=== PATIENT | male | born 1985 | race Caucasian/White ===

== ENCOUNTER 2018-05-26 17:46 | Emergency (ER) | payer SELFPAY ==
[2018-05-26] MEDS ORDERED: ALBUTEROL 2.5 MG/3 ML NEB SOL ONE (18:37)
[2018-05-26 18:48] LABS: Urine Blood NEGATIVE (NEG); Urine Glucose NEGATIVE (NEG); Urine Protein NEGATIVE (NEG)
[2018-05-26 18:51] LABS: Absolute Lymphocytes (CBC) 1.3 K/uL (0.7-4.9); Absolute Monocytes 1.3 K/uL (0.1-1.3); Absolute Neutrophil 12.1 K/uL (1.8-8.0); Basophils % 0.3 % (0-1.3); Eosinophils % 0.6 % (0-4.4); Hematocrit 37.6 % (39.6-49.0); Lymphocytes % 9.1 % (15.3-44.8); MCH 30.2 pg (27.0-35.0); MCV 87.3 fL (80-100); MPV 8.1 fL (7.6-11.3); Monocytes % 8.6 % (3.3-12.3); RBC Red Blood Cell Count 4.31 M/uL (4.33-5.43)
[2018-05-26 18:58] LABS: Barbiturates NEGATIVE (NEGATIVE); Benzodiazepines NEGATIVE (NEGATIVE); Cocaine NEGATIVE (NEGATIVE); METHAMPHETAM NEGATIVE (NEGATIVE); Methadone NEGATIVE (NEGATIVE); Opiates NEGATIVE (NEGATIVE); Phencyclidine NEGATIVE (NEGATIVE); THC Cannibis POSITIVE (NEGATIVE)
[2018-05-26 19:08] LABS: ALT/SGPT 28 U/L (12-78); AST/SGOT 22 U/L (15-37); Albumin 3.9 g/dL (3.4-5.0); Alkaline Phosphatase 88 U/L (45-117); BUN Blood Urea Nitrogen 4 mg/dL (7-18); Bicarbonate 24 mmol/L (21-32); Bilirubin Direct 0.2 mg/dL (0-0.2); Bilirubin Total 0.7 mg/dL (0.2-1.0); Glucose Level 134 mg/dL (74-106); Magnesium 2.2 mg/dL (1.8-2.4); Potassium 3.2 mmol/L (3.5-5.1); Protein, Total 6.9 g/dL (6.4-8.2); Sodium Level 140 mmol/L (136-145); Troponin (Emerg Dept Use Only) < 0.02 ng/mL (0.0-0.045)
[2018-05-26] MEDS ORDERED: AZITHROMYCIN 250 MG TAB ONE (19:23)
[2018-05-26] MEDS ORDERED: NA CHLORIDE 0.9% 50 ML IV ONE (19:24)
[2018-05-26] MEDS ORDERED: HYDROCODONE/CHLORPHEN 5 ML/OSYR ONE (19:24)
[2018-05-26] MEDS ORDERED: CEFTRIAXONE 1000 MG/VIAL ONE (19:24)
--- NOTE | 2018-05-26 19:34 | RAD REPORT ---
EXAM DESCRIPTION: Maday Valderrama (2 Views)05/26/2018 6:59 pm CLINICAL HISTORY: Cough COMPARISON: None FINDINGS: The lungs appear clear of acute infiltrate. Lungs are moderately hyperaerated. The heart is normal size IMPRESSION: Hyperaerated lungs may be secondary to asthma. . No acute abnormality is displayed
[2018-05-26] MEDS ORDERED: KCL 20 MEQ/100 mL IVPB 20 MEQ/100 ML BAG IV ONE (19:41)
--- NOTE | 2018-05-26 22:04 | ER ---
Nurse's Notes [facility] Name: Juan David Gould Age: 32 yrs Sex: Male : 1985 Arrival Date: 05/26/2018 Time: 17:50 Bed 16 Private MD: None, None Diagnosis: Pneumonia, unspecified organism;Unspecified asthma with (acute) exacerbation Presentation: 05/26 18:03 Presenting complaint: Patient states: dry hacking cough, sneezing since yesterday, iw today having fatigue, weakness, chest pain with cough, near syncopal episode at work, sweating and chills. Transition of care: patient was not received from another setting of care. Onset of symptoms was May 26, 2018. Risk Assessment: Do you want to hurt yourself or someone else? Patient reports no desire to harm self or others. Initial Sepsis Screen: Does the patient meet any 2 criteria? No. Patient's initial sepsis screen is negative. Does the patient have a suspected source of infection? No. Patient's initial sepsis screen is negative. Care prior to arrival: None. 18:03 Method Of Arrival: Ambulatory iw 18:03 Acuity: JUN 3 iw Historical: - Allergies: 18:05 Bactrim; iw - Home Meds: 18:05 None [Active]; iw - PMHx: 18:05 Asthma; iw - PSHx: 18:05 None; iw - Immunization history:: Adult Immunizations not up to date. - Social history:: Smoking status: Patient uses tobacco products, smokes one-half pack cigarettes per day. - Ebola Screening: : Patient negative for fever greater than or equal to 101.5 degrees Fahrenheit, and additional compatible Ebola Virus Disease symptoms Patient denies exposure to infectious person Patient denies travel to an Ebola-affected area in the 21 days before illness onset No symptoms or risks identified at this time. Screenin:51 Abuse screen: Denies threats or abuse. Denies injuries from another. Nutritional jl7 screening: No deficits noted. Tuberculosis screening: No symptoms or risk factors identified. Fall Risk IV access (20 points). Total Wilkerson Fall Scale indicates No Risk (0-24 pts). Assessment: 18:00 General: Appears in no apparent distress. uncomfortable, Behavior is cooperative, jl7 anxious. Pain: Complains of pain in anterior aspect of left upper chest Pain currently is 8 out of 10 on a pain scale. Quality of pain is described as burning. Neuro: Level of Consciousness is awake, alert, obeys commands, Oriented to person, place, time, situation. Cardiovascular: Heart tones S1 S2 present Patient's skin is warm and dry. Respiratory: Reports cough that is non-productive, hacking, persistent Airway is patent Respiratory effort is even, unlabored, Respiratory pattern is regular, symmetrical, Breath sounds are clear. GI: Abdomen is flat, non-distended. Derm: Skin is pink, warm \T\ dry. 19:15 Reassessment: Patient appears in no apparent distress at this time. Patient and/or cc3 family updated on plan of care and expected duration. Pain level reassessed. Patient is alert, oriented x 3, equal unlabored respirations, skin warm/dry/pink. Received this male patient from morning shift RN Seth as a case of cough, vomiting and asthma exacerbation. With IV cannula gauge 20 at the right inner forearm with ongoing bolus of NS 1L, infusing well. 20:33 Reassessment: Patient appears in no apparent distress at this time. Patient and/or cc3 family updated on plan of care and expected duration. Pain level reassessed. Patient is alert, oriented x 3, equal unlabored respirations, skin warm/dry/pink. 21:15 Reassessment: Patient appears in no apparent distress at this time. Patient and/or cc3 family updated on plan of care and expected duration. Pain level reassessed. Patient is alert, oriented x 3, equal unlabored respirations, skin warm/dry/pink. 22:30 Reassessment: Patient appears in no apparent distress at this time. Patient and/or cc3 family updated on plan of care and expected duration. Pain level reassessed. Patient is alert, oriented x 3, equal unlabored respirations, skin warm/dry/pink. ALESIA Emerson discharged the patient home with prescription given. IV cannula removed and patient left ER vitally stable and ambulatory. Vital Signs: 18:05 BP 129 / 70; Pulse 96; Resp 18 S; Pulse Ox 98% on R/A; Weight 72.57 kg; Height 5 ft. 7 iw in. (170.18 cm); Pain 10/10; 18:52 BP 116 / 63; Pulse 95; Resp 18 S; Temp 99.7(O); Pulse Ox 96% on R/A; jl7 19:30 BP 113 / 70; Pulse 90; Resp 25; Pulse Ox 95% on R/A; cc3 20:34 BP 109 / 65; Pulse 97; Resp 26 S; Pulse Ox 96% on R/A; cc3 21:20 BP 110 / 63; Pulse 96; Resp 23 S; Pulse Ox 96% on R/A; cc3 22:14 BP 112 / 72; Pulse 98; Resp 23 S; Pulse Ox 96% on R/A; cc3 18:05 Body Mass Index 25.06 (72.57 kg, 170.18 cm) iw ED Course: 17:50 Patient arrived in ED. mr 17:51 None, None is Private Physician. mr 17:56 Seth Tee, GOPAL is Primary Nurse. jl7 18:03 Idania Sauceda [facility]C [facility]. snw 18:03 Pankaj Arizmendi MD is Attending Physician. snw 18:04 Triage completed. iw 18:05 Arm band placed on. iw 18:15 Missed attempt(s): 20 gauge in right forearm. Bleeding controlled, band aid applied, jl7 catheter tip intact. 18:20 Inserted saline lock: 20 gauge in right forearm, using aseptic technique. Blood jl7 collected. 18:42 Flu and/or RSV swab sent to lab. gm 18:42 Initial lab(s) drawn, by ak, sent to lab. gm 18:51 Patient has correct armband on for positive identification. Placed in gown. Bed in low jl7 position. Call light in reach. Side rails up X2. youth nutritional monitor on. Pulse ox on. NIBP on. 18:59 Chest Pa And Lat (2 Views) XRAY In Process Unspecified. EDMS 22:30 No provider procedures requiring assistance completed. IV discontinued, intact, cc3 bleeding controlled, No redness/swelling at site. Pressure dressing applied. Administered Medications: 08:35 Drug: Albuterol 2.5 mg Route: Inhalation; jl7 18:35 Drug: NS 0.9% 1000 ml Route: IV; Rate: 1 bolus; Site: right forearm; jl7 20:00 Follow up: Response: No adverse reaction; IV Status: Completed infusion; IV Intake: cc3 1000ml 19:20 Drug: Zithromax 500 mg Route: PO; cc3 20:00 Follow up: Response: No adverse reaction cc3 19:20 Drug: Tussionex Pennkinetic ER 5 ml Route: PO; cc3 20:00 Follow up: Response: No adverse reaction cc3 19:22 Drug: Rocephin 1 grams Route: IV; Rate: calculated rate; Site: right antecubital; cc3 20:00 Follow up: Response: No adverse reaction; IV Status: Completed infusion cc3 19:40 Drug: Potassium Chloride 20 mEq Route: IV; Rate: calculated rate; Site: right cc3 antecubital; 22:10 Follow up: Response: No adverse reaction; IV Status: Completed infusion; IV Intake: cc3 100ml Intake: 20:00 IV: 1000ml; Total: 1000ml. cc3 22:10 IV: 100ml; Total: 1100ml. cc3 Outcome: 22:03 Discharge ordered by . snángel 22:30 Discharged to home ambulatory. cc3 22:30 Condition: stable 22:30 Discharge instructions given to patient, Instructed on discharge instructions, follow up and referral plans. medication usage, Demonstrated understanding of instructions, follow-up care, medications, Prescriptions given X 3. 22:39 Patient left the ED. cc3 Signatures: Dispatcher [employer] EDMS Idania Sauceda, [employer] CLASSROOM COORDINATOR-Michelle Fernandez Irene, RN Seth Forrest RN RN jl7 Yisel Shetty cc3 Pam Malave gm
--- NOTE | 2018-05-26 22:04 | EDPHYS ---
Physician Documentation [facility] Name: Juan David Gould Age: 32 yrs Sex: Male : 1985 Arrival Date: 05/26/2018 Time: 17:50 Bed 16 Private MD: None, None ED Physician Pankaj Arizmendi HPI: 05/26 18:52 This 32 yrs old Male presents to ER via Ambulatory with complaints of Cough, snw Vomiting, Asthma Exacerbation. 18:52 The patient or guardian reports cough, that is constant, flu symptoms, arthralgias, snw low-grade fever, myalgias, no appetite, hoarse voice. Onset: The symptoms/episode began/occurred suddenly, yesterday. Severity of symptoms: At their worst the symptoms were severe, incapacitating. Associated signs and symptoms: The patient has no apparent associated signs or symptoms. The patient has not experienced similar symptoms in the past. The patient has not recently seen a physician, and does not have an established primary care provider, [facility] Historical: - Allergies: 18:05 Bactrim; iw - Home Meds: 18:05 None [Active]; iw - PMHx: 18:05 Asthma; iw - PSHx: 18:05 None; iw - Immunization history:: Adult Immunizations not up to date. - Social history:: Smoking status: Patient uses tobacco products, smokes one-half pack cigarettes per day. - Ebola Screening: : Patient negative for fever greater than or equal to 101.5 degrees Fahrenheit, and additional compatible Ebola Virus Disease symptoms Patient denies exposure to infectious person Patient denies travel to an Ebola-affected area in the 21 days before illness onset No symptoms or risks identified at this time. ROS: 18:51 Eyes: Negative for injury, pain, redness, and discharge. snw 18:51 Neck: Negative for injury, pain, and swelling. 18:51 Abdomen/GI: Negative for abdominal pain, nausea, vomiting, diarrhea, and constipation, Back: Negative for injury and pain, : Negative for injury, bleeding, discharge, and swelling, MS/Extremity: Negative for injury and deformity, Skin: Negative for injury, rash, and discoloration, Neuro: Negative for headache, weakness, numbness, tingling, and seizure. 18:51 Constitutional: Positive for body aches, chills, fatigue, fever, malaise. 18:51 ENT: Positive for sinus congestion. 18:51 Cardiovascular: Positive for chest pain, with cough. 18:51 Respiratory: Positive for cough. Exam: 18:47 Head/Face: Normocephalic, atraumatic. Eyes: Pupils equal round and reactive to light, snw extra-ocular motions intact. Lids and lashes normal. Conjunctiva and sclera are non-icteric and not injected. Cornea within normal limits. Periorbital areas with no swelling, redness, or edema. ENT: Nares patent. No nasal discharge, no septal abnormalities noted. Tympanic membranes are normal and external auditory canals are clear. Oropharynx with no redness, swelling, or masses, exudates, or evidence of obstruction, uvula midline. Mucous membranes moist. Neck: Trachea midline, no thyromegaly or masses palpated, and no cervical lymphadenopathy. Supple, full range of motion without nuchal rigidity, or vertebral point tenderness. No Meningismus. Chest/axilla: Normal chest wall appearance and motion. Nontender with no deformity. No lesions are appreciated. Cardiovascular: Regular rate and rhythm with a normal S1 and S2. No gallops, murmurs, or rubs. Normal PMI, no JVD. No pulse deficits. 18:47 Abdomen/GI: Soft, non-tender, with normal bowel sounds. No distension or tympany. No guarding or rebound. No evidence of tenderness throughout. Back: No spinal tenderness. No costovertebral tenderness. Full range of motion. MS/ Extremity: Pulses equal, no cyanosis. Neurovascular intact. Full, normal range of motion. Neuro: Awake and alert, GCS 15, oriented to person, place, time, and situation. Cranial nerves II-XII grossly intact. Motor strength 5/5 in all extremities. Sensory grossly intact. Cerebellar exam normal. Normal gait. 18:47 Constitutional: The patient appears alert, anxious, restless, unkempt. 18:47 Respiratory: the patient does not display signs of respiratory distress, Respirations: shallow respirations, tachypnea, Breath sounds: + upper airway congestion. forced repetitive cough. 18:47 Skin: Appearance: Color: normal in color, Moisture: dry. 18:47 Psych: Behavior/mood is anxious, inappropriate for age. Vital Signs: 18:05 BP 129 / 70; Pulse 96; Resp 18 S; Pulse Ox 98% on R/A; Weight 72.57 kg; Height 5 ft. 7 iw in. (170.18 cm); Pain 10/10; 18:52 BP 116 / 63; Pulse 95; Resp 18 S; Temp 99.7(O); Pulse Ox 96% on R/A; jl7 19:30 BP 113 / 70; Pulse 90; Resp 25; Pulse Ox 95% on R/A; cc3 20:34 BP 109 / 65; Pulse 97; Resp 26 S; Pulse Ox 96% on R/A; cc3 21:20 BP 110 / 63; Pulse 96; Resp 23 S; Pulse Ox 96% on R/A; cc3 22:14 BP 112 / 72; Pulse 98; Resp 23 S; Pulse Ox 96% on R/A; cc3 18:05 Body Mass Index 25.06 (72.57 kg, 170.18 cm) iw MDM: 18:17 Patient medically screened. snw 22:04 Data reviewed: vital signs, nurses notes. Data interpreted: Pulse oximetry: on room air snw is 96 %. Interpretation: acceptable. Counseling: I had a detailed discussion with the patient and/or guardian regarding: the historical points, exam findings, and any diagnostic results supporting the discharge/admit diagnosis, lab results, radiology results, the need for outpatient follow up, to return to the emergency department if symptoms worsen or persist or if there are any questions or concerns that arise at home. Special discussion: Based on the history and exam findings, there is no indication for further emergent testing or inpatient evaluation. I discussed with the patient/guardian the need to see the primary care provider for further evaluation of the symptoms. 05/26 18:18 Order name: Flu; Complete Time: 19:03 snw 05/26 18:24 Order name: UDS; Complete Time: 19:02 snw 05/26 18:24 Order name: Basic Metabolic Panel; Complete Time: 19:09 snw 05/26 18:24 Order name: CBC with Diff; Complete Time: 19:21 snw 05/26 18:24 Order name: LFT's; Complete Time: 19:09 snw 05/26 18:24 Order name: Magnesium; Complete Time: 19:09 snw 05/26 18:18 Order name: Chest Pa And Lat (2 Views) XRAY; Complete Time: 19:36 snw 05/26 18:24 Order name: Troponin (emerg Dept Use Only); Complete Time: 19:09 snw 05/26 18:41 Order name: Urine Dipstick--Ancillary (enter results); Complete Time: 18:53 eb 05/26 18:24 Order name: Cardiac monitoring; Complete Time: 18:40 snw 05/26 18:24 Order name: IV Saline Lock; Complete Time: 18:40 snw 05/26 18:24 Order name: Labs collected and sent; Complete Time: 18:40 snw 05/26 18:24 Order name: O2 Per Protocol; Complete Time: 18:40 snw 05/26 18:24 Order name: O2 Sat Monitoring; Complete Time: 18:40 snw Administered Medications: 08:35 Drug: Albuterol 2.5 mg Route: Inhalation; jl7 18:35 Drug: NS 0.9% 1000 ml Route: IV; Rate: 1 bolus; Site: right forearm; 7 20:00 Follow up: Response: No adverse reaction; IV Status: Completed infusion; IV Intake: cc3 1000ml 19:20 Drug: Zithromax 500 mg Route: PO; cc3 20:00 Follow up: Response: No adverse reaction cc3 19:20 Drug: Tussionex Pennkinetic ER 5 ml Route: PO; cc3 20:00 Follow up: Response: No adverse reaction cc3 19:22 Drug: Rocephin 1 grams Route: IV; Rate: calculated rate; Site: right antecubital; 3 20:00 Follow up: Response: No adverse reaction; IV Status: Completed infusion cc3 19:40 Drug: Potassium Chloride 20 mEq Route: IV; Rate: calculated rate; Site: right cc3 antecubital; 22:10 Follow up: Response: No adverse reaction; IV Status: Completed infusion; IV Intake: cc3 100ml Disposition: 19:06 Co-signature as Attending Physician, Pankaj Arizmendi MD. Disposition: 05/26/18 22:03 Discharged to Home. Impression: Pneumonia, unspecified organism, Unspecified asthma with (acute) exacerbation. - Condition is Stable. - Discharge Instructions: How to Use an Inhaler, Community-Acquired Pneumonia, Adult, Cough, Adult. - Prescriptions for Prednisone 20 mg Oral Tablet - take 2 tablet by ORAL route once daily for 5 days; 10 tablet. Albuterol Sulfate 90 mcg/actuation - inhale 1-2 puff by INHALATION route every 4-6 hours; 1 Inhaler. Zithromax 500 mg Oral Tablet - take 1 tablet by ORAL route once daily for 5 days; 5 tablet. - Work release form, Medication Reconciliation Form, Thank You Letter, Antibiotic Education, Prescription Opioid Use form. - Follow up: Private Physician; When: 2 - 3 days; Reason: Recheck today's complaints, Continuance of care, Re-evaluation by your physician. Follow up: Emergency Department; When: As needed; Reason: Worsening of condition. Signatures: Dispatcher [employer] EDMS Idania Sauceda, ANATOLY-C ALUMINUM BOATS ASSEMBLER-Csnw Grace Queen RN RN iw Leal, Jahala, RN RN jl7 Pankaj Arizmendi MD MD gs Cordel, Charlene cc3 Corrections: (The following items were deleted from the chart) 22:39 22:03 05/26/2018 22:03 Discharged to Home. Impression: Pneumonia, unspecified organism; cc3 Unspecified asthma with (acute) exacerbation. Condition is Stable. Forms are Medication Reconciliation Form, Thank You Letter, Antibiotic Education, Prescription Opioid Use. Follow up: Private Physician; When: 2 - 3 days; Reason: Recheck today's complaints, Continuance of care, Re-evaluation by your physician. Follow up: Emergency Department; When: As needed; Reason: Worsening of condition. snw
--- NOTE | 2018-05-27 10:15 | EKG ---
Test Date: 2018-05-26 Test Time: 18:08:17 Graphics Coordinator: ANA MEASUREMENT RESULTS: Intervals: Rate: 86 OK: 132 QRSD: 104 QT: 348 QTc: 416 [place]: P: 64 OK: 132 QRS: 77 T: 70 INTERPRETIVE STATEMENTS: Normal sinus rhythm Minimal voltage criteria for LVH, may be normal variant Borderline ECG No previous ECG available for comparison Electronically Signed On 05-27-18 10:15:08 MANAGER SYSTEM by Ike Cook
== END 2018-05-26 22:39 | disposition home or self-care (01) ==
LOC: ER 17:46
DX: J18.9 Pneumonia, unspecified organism (principal); J45.901 Unspecified asthma with (acute) exacerbation; F17.210 Nicotine dependence, cigarettes, uncomplicated
CPT/HCPCS: 36415; 71046; 80048; 80076; 80307; 81003; 83735; 84484; 85025; 87804; 93005; 96361; 96365; 96366; 99285

== ENCOUNTER 2018-08-10 20:43 | Emergency (ER) | payer SELFPAY ==
[2018-08-10] MEDS ORDERED: HYDROCODONE/APAP 7.5/325 MG TAB ONE (22:11)
--- NOTE | 2018-08-10 23:25 | EDPHYS ---
Physician Documentation [facility] Name: Juan David Gould Age: 32 yrs Sex: Male : 1985 Arrival Date: 08/10/2018 Time: 20:49 Bed 15 Private MD: ED Physician Julia Avila HPI: 08/10 22:46 This 32 yrs old Male presents to ER via Ambulatory with complaints of Hand ma2 Injury. 22:46 The patient or guardian reports a contusion, decreased range of motion, injury. The ma2 complaints affect the left hand diffusely. Context: resulted from lifting or pulling. Onset: The symptoms/episode began/occurred suddenly, 1 hour(s) ago. Associated signs and symptoms: Pertinent positives: Pertinent negatives: decreased sensation distally, tingling distally, vomiting. Severity of symptoms: At their worst the symptoms were moderate, in the emergency department the symptoms are unchanged. The patient has not experienced similar symptoms in the past. Historical: - Allergies: 21:22 Bactrim; bb - Home Meds: 21:22 None [Active]; bb - PMHx: 21:22 Asthma; meningitis; colitis; Heart Murmur; bb - PSHx: 21:22 None; bb - Immunization history:: Adult Immunizations up to date, Flu vaccine is not up to date. - Social history:: Smoking status: Patient uses tobacco products, smokes one pack cigarettes per day. Patient uses alcohol, occasionally. street drugs, marijuana, Smoking status: Patient uses tobacco products, Patient/guardian denies using alcohol, street drugs, The patient lives with family. - Ebola Screening: : No symptoms or risks identified at this time. - Family history:: not pertinent. ROS: 22:46 Constitutional: Negative for fever, chills, and weight loss, Respiratory: Negative for ma2 shortness of breath, cough, wheezing, and pleuritic chest pain. 22:46 MS/extremity: Positive for tenderness, Negative for abrasion, contusion, ecchymosis, laceration, tingling. 22:46 All other systems are negative. Exam: 22:46 Constitutional: This is a well developed, well nourished patient who is awake, alert, ma2 and in no acute distress. 22:46 Respiratory: Lungs have equal breath sounds bilaterally, clear to auscultation and percussion. No rales, rhonchi or wheezes noted. No increased work of breathing, no retractions or nasal flaring. Skin: Warm, dry with normal turgor. Normal color with no rashes, no lesions, and no evidence of cellulitis. Neuro: Awake and alert, GCS 15, oriented to person, place, time, and situation. Cranial nerves II-XII grossly intact. Motor strength 5/5 in all extremities. Sensory grossly intact. Cerebellar exam normal. Normal gait. 22:46 Musculoskeletal/extremity: ROM: limited active range of motion, left hand pain and tenderness mostly over left 2nd metacarpal , Circulation is intact in all extremities. Sensation intact. Compartment Syndrome exam of affected extremity: no pain, no numbness, Joints: Vital Signs: 21:22 BP 126 / 70; Pulse 66; Resp 18 S; Temp 98.6(O); Pulse Ox 98% on R/A; Weight 68.04 kg bb (R); Height 5 ft. 6 in. (167.64 cm) (R); Pain 10/10; 21:22 Body Mass Index 24.21 (68.04 kg, 167.64 cm) bb MDM: 21:26 Patient medically screened. ca2 22:46 Differential diagnosis: dislocation, closed fracture, contusion, tendonitis. ca2 23:23 Data reviewed: vital signs, nurses notes. Counseling: I had a detailed discussion with ma2 the patient and/or guardian regarding: the historical points, exam findings, and any diagnostic results supporting the discharge/admit diagnosis, the presence of at least one elevated blood pressure reading (>120/80) during this emergency department visit, the need for outpatient follow up. Response to treatment: the patient's symptoms have markedly improved after treatment. ED course: xray unremarkable he will see pcp for repeat thumb xray . 08/10 21:24 Order name: XRAY Hand LEFT 3 View bb 08/10 21:36 Order name: Wrist Left (3 View) XRAY ma2 08/10 22:57 Order name: Thumb Spica Splint; Complete Time: 23:29 ma2 Administered Medications: 22:00 Drug: [facility] (7.5 mg-325 mg) 2 tabs Route: PO; ak1 23:29 Follow up: Response: No adverse reaction ak1 Disposition: 08/10/18 23:24 Discharged to Home. Impression: Pain in left hand. - Condition is Stable. - Discharge Instructions: Musculoskeletal Pain. - Prescriptions for Tylenol- Codeine #3 300-30 mg Oral Tablet - take 2 tablet by ORAL route every 6 hours As needed; 30 tablet. - Medication Reconciliation Form, Thank You Letter, Antibiotic Education, Prescription Opioid Use form. - Follow up: Private Physician; When: Tomorrow; Reason: Continuance of care. - Notes: see yoour pcp to repeat left hand xray in 2 weeks, keep splint untill then Signatures: Dispatcher [employer] Amisha Mirza RN RN Caridad Helm RN RN ak1 Julia Avila MD MD ma2 Corrections: (The following items were deleted from the chart) 23:41 23:24 08/10/2018 23:24 Discharged to Home. Impression: Pain in left hand. Condition is ak1 Stable. Forms are Medication Reconciliation Form, Thank You Letter, Antibiotic Education, Prescription Opioid Use. Follow up: Private Physician; When: Tomorrow; Reason: Continuance of care. ma2
--- NOTE | 2018-08-10 23:25 | ER ---
Nurse's Notes [facility] Name: Juan David Gould Age: 32 yrs Sex: Male : 1985 Arrival Date: 08/10/2018 Time: 20:49 Bed 15 Private MD: Diagnosis: Pain in left hand Presentation: 08/10 21:20 Presenting complaint: Patient states: he was doing some mechanical work tonight and got bb his left first finger caught up in the bearing machine, finger has been fractured in the past now is painful and swollen. Transition of care: patient was not received from another setting of care. Onset of symptoms was August 10, 2018. Risk Assessment: Do you want to hurt yourself or someone else? Patient reports no desire to harm self or others. Initial Sepsis Screen: Does the patient meet any 2 criteria? No. Patient's initial sepsis screen is negative. Does the patient have a suspected source of infection? No. Patient's initial sepsis screen is negative. Care prior to arrival: None. 21:20 Method Of Arrival: Ambulatory bb 21:20 Acuity: JUN 4 bb Triage Assessment: 23:12 General: Appears in no apparent distress. Behavior is calm, cooperative. Pain: ak1 Complains of pain in left hand. EENT: No signs and/or symptoms were reported regarding the EENT system. Neuro: No deficits noted. Cardiovascular: No deficits noted. Respiratory: No deficits noted. GI: No signs and/or symptoms were reported involving the gastrointestinal system. : No signs and/or symptoms were reported regarding the genitourinary system. Derm: No signs and/or symptoms reported regarding the dermatologic system. Musculoskeletal: Reports pain in left hand. Injury Description: Crush injury sustained to left hand. Historical: - Allergies: 21:22 Bactrim; bb - Home Meds: 21:22 None [Active]; bb - PMHx: 21:22 Asthma; meningitis; colitis; Heart Murmur; bb - PSHx: 21:22 None; bb - Immunization history:: Adult Immunizations up to date, Flu vaccine is not up to date. - Social history:: Smoking status: Patient uses tobacco products, smokes one pack cigarettes per day. Patient uses alcohol, occasionally. street drugs, marijuana, Smoking status: Patient uses tobacco products, Patient/guardian denies using alcohol, street drugs, The patient lives with family. - Ebola Screening: : No symptoms or risks identified at this time. - Family history:: not pertinent. Screenin:07 Abuse screen: Denies threats or abuse. Denies injuries from another. Nutritional ak1 screening: No deficits noted. Tuberculosis screening: No symptoms or risk factors identified. Fall Risk None identified. Vital Signs: 21:22 BP 126 / 70; Pulse 66; Resp 18 S; Temp 98.6(O); Pulse Ox 98% on R/A; Weight 68.04 kg bb (R); Height 5 ft. 6 in. (167.64 cm) (R); Pain 10/10; 21:22 Body Mass Index 24.21 (68.04 kg, 167.64 cm) bb ED Course: 20:49 Patient arrived in ED. es 21:21 Triage completed. bb 21:22 Arm band placed on Patient placed in an exam room, on a stretcher. bb 21:24 Caridad Montenegro, RN is Primary Nurse. ak1 21:24 X-ray ordered. bb 21:26 Julia Avila MD is Attending Physician. ma2 22:32 XRAY Hand LEFT 3 View In Process Unspecified. EDMS 22:32 Wrist Left (3 View) XRAY In Process Unspecified. EDMS 23:07 Patient has correct armband on for positive identification. Pulse ox on. NIBP on. ak1 23:07 No provider procedures requiring assistance completed. Patient did not have IV access ak1 during this emergency room visit. Administered Medications: 22:00 Drug: Gerlaw (7.5 mg-325 mg) 2 tabs Route: PO; ak1 23:29 Follow up: Response: No adverse reaction ak1 Outcome: 23:20 Condition: good ak1 23:24 Discharge ordered by . ma2 23:40 Discharged to home ambulatory, with family. ak1 23:40 Discharge instructions given to patient, family, Instructed on discharge instructions, follow up and referral plans. no drinking with medication, no driving heavy equipment, medication usage, Demonstrated understanding of instructions, follow-up care, medications, splint care, Prescriptions given X 1. 23:41 Patient left the ED. ak1 Signatures: Dispatcher [employer] EDDC Ina Aranda Brenda, RN RN bb Caridad Montenegro RN RN ak1 Alzahri, Mohammad, MD MD ma2
--- NOTE | 2018-08-11 08:13 | RAD REPORT ---
EXAM DESCRIPTION: RAD - Wrist Left 3 View - 08/10/2018 10:31 pm CLINICAL HISTORY: Trauma, pain Pain COMPARISON: No relevant comparison FINDINGS: Left wrist and left hand- multiple projections are submitted. Soft tissue swelling is seen involving the second digit. Mild soft tissue swelling is also seen about the wrist. No acute fracture or dislocation evident.
== END 2018-08-10 23:41 | disposition home or self-care (01) ==
LOC: ER 20:43
DX: M79.642 Pain in left hand (principal); J45.909 Unspecified asthma, uncomplicated; F17.210 Nicotine dependence, cigarettes, uncomplicated
CPT/HCPCS: 99284

== ENCOUNTER 2018-09-15 16:18 | Emergency (ER) | payer SELFPAY ==
[2018-09-15] MEDS ORDERED: NA CHLORIDE 0.9% 1,000 ML ONE (17:32)
[2018-09-15 17:40] LABS: Absolute Lymphocytes (CBC) 1.2 K/uL (0.7-4.9); Absolute Monocytes 1.2 K/uL (0.1-1.3); Absolute Neutrophil 6.4 K/uL (1.8-8.0); Basophils % 0.5 % (0-1.3); Eosinophils % 0.1 % (0-4.4); Hematocrit 44.2 % (39.6-49.0); Lymphocytes % 13.9 % (15.3-44.8); Monocytes % 13.3 % (3.3-12.3); RBC Red Blood Cell Count 4.98 M/uL (4.33-5.43)
--- NOTE | 2018-09-15 17:54 | RAD REPORT ---
EXAM DESCRIPTION: Maday Valderrama (2 Views)09/15/2018 5:43 pm CLINICAL HISTORY: Cough COMPARISON: May 2018 FINDINGS: The lungs appear clear of acute infiltrate. The heart is normal size IMPRESSION: No acute abnormalities displayed
[2018-09-15] MEDS ORDERED: IBUPROFEN 400 MG TAB ONE (17:57)
[2018-09-15 17:58] LABS: ALT/SGPT 29 U/L (12-78); AST/SGOT 29 U/L (15-37); Albumin 3.9 g/dL (3.4-5.0); Alkaline Phosphatase 81 U/L (45-117); BUN Blood Urea Nitrogen 11 mg/dL (7-18); Bicarbonate 27 mmol/L (21-32); Bilirubin Total 0.4 mg/dL (0.2-1.0); Glucose Level 89 mg/dL (74-106); Protein, Total 7.2 g/dL (6.4-8.2); Sodium Level 139 mmol/L (136-145)
--- NOTE | 2018-09-15 18:30 | EDPHYS ---
Physician Documentation [facility] Name: Juan David Gould Age: 32 yrs Sex: Male : 1985 Arrival Date: 09/15/2018 Time: 16:19 Bed 9 Private MD: ED Physician Reji Alvarez HPI: 09/15 17:06 This 32 yrs old Male presents to ER via Ambulatory with complaints of Flu jmm Symptoms. 17:06 The patient or guardian reports cough. Onset: The symptoms/episode began/occurred jmm gradually, 2 day(s) ago. This is a 32 year old male with a history of asthma presents to the ED with complaints of cough, congestion, headache, ear ache, sore throat, fever, beginning this past Friday. . 17:06 Modifying factors: The symptoms are alleviated by nothing. the symptoms are aggravated jmm by nothing. 17:06 Associated signs and symptoms: Pertinent positives: fever, rhinorrhea, sore throat. jm Historical: - Allergies: 16:33 Bactrim; hj - Home Meds: 16:33 None [Active]; hj - PMHx: 16:33 Asthma; Colitis; Heart Murmur; meningitis; hj - PSHx: 16:33 None; hj - Immunization history:: Adult Immunizations up to date. - Social history:: Smoking status: Patient uses tobacco products, Patient/guardian denies using alcohol. - Ebola Screening: : Patient negative for fever greater than or equal to 101.5 degrees Fahrenheit, and additional compatible Ebola Virus Disease symptoms Patient denies exposure to infectious person Patient denies travel to an Ebola-affected area in the 21 days before illness onset. ROS: 17:06 Eyes: Negative for injury, pain, redness, and discharge, Cardiovascular: Negative for jmm chest pain, palpitations, and edema. 17:06 Constitutional: Positive for fever. 17:06 ENT: Positive for ear pain, sinus congestion, sore throat. 17:06 Respiratory: Positive for cough. 17:06 Neuro: Positive for headache. 17:06 All other systems are negative. Exam: 17:06 Head/Face: atraumatic. Eyes: EOMI, no conjunctival erythema appreciated Neck: jmm Trachea midline, Supple 17:06 Cardiovascular: Regular rate and rhythm. No edema appreciated 17:06 Constitutional: The patient appears in no acute distress, alert, awake. 17:06 ENT: TM's: erythema, on the right, on the left, Posterior pharynx: erythema, that is moderate. 17:06 Respiratory: the patient does not display signs of respiratory distress, Respirations: normal, Breath sounds: are clear throughout. 17:06 Abdomen/GI: Inspection: abdomen appears normal, Bowel sounds: normal. 17:06 Back: ROM is normal. 17:06 Musculoskeletal/extremity: ROM: intact in all extremities. 17:06 Skin: Appearance: Color: normal in color. 17:06 Neuro: Orientation: is normal, Mentation: is normal, Memory: is normal. 17:06 Psych: Behavior/mood is pleasant, cooperative. Vital Signs: 16:34 BP 109 / 56; Pulse 108; Resp 18; Temp 99.4(O); Pulse Ox 100% on R/A; Weight 65.77 kg; hj Height 5 ft. 6 in. (167.64 cm); 18:01 BP 124 / 85; Pulse 98; Resp 16; Pulse Ox 98% on R/A; iw 16:34 Body Mass Index 23.40 (65.77 kg, 167.64 cm) MDM: 16:58 Patient medically screened. [facility] 18:27 Data reviewed: vital signs, nurses notes, lab test result(s), radiologic studies, plain [facility] films. Counseling: I had a detailed discussion with the patient and/or guardian regarding: the historical points, exam findings, and any diagnostic results supporting the discharge/admit diagnosis, radiology results, the need for outpatient follow up, to return to the emergency department if symptoms worsen or persist or if there are any questions or concerns that arise at home. ED course: Patient is alert and non toxic in appearance in the ED. Neck is supple. i don suspect meningitis. Patient given strict return precautions. Patient understood and agrees with the plan of care. . 09/15 16:36 Order name: Flu; Complete Time: 17:54 09/15 16:36 Order name: Strep; Complete Time: 17:54 09/15 17:03 Order name: Chest Pa And Lat (2 Views) XRAY; Complete Time: 17:59 [facility] 09/15 17:12 Order name: CBC with Diff; Complete Time: 17:54 [facility] 09/15 17:12 Order name: CMP; Complete Time: 18:30 [facility] 09/15 17:16 Order name: Throat Culture [facility] 09/15 17:12 Order name: Saline Lock; Complete Time: 17:33 [facility] Administered Medications: 17:33 Drug: NS 0.9% 1000 ml Route: IV; Rate: 1 bolus; Site: right antecubital; iw 17:51 Drug: Motrin 800 mg Route: PO; iw 18:57 Follow up: Response: No adverse reaction iw 18:59 Drug: Tamiflu 75 mg Route: PO; Disposition: 21:27 Co-signature as Attending Physician, Reji Alvarez MD Available for consultation at ps1 all times . Disposition: 09/15/18 18:29 Discharged to Home. Impression: Influenza due to certain identified influenza viruses. - Condition is Stable. - Discharge Instructions: Influenza, Adult. - Prescriptions for Bromfed DM 2- 30-10 mg/5 mL Oral syrup - take 10 milliliter by ORAL route every 4 hours; 120 milliliter. Tamiflu 75 mg Oral Capsule - take 1 tablet by ORAL route every 12 hours for 5 days; 10 tablet. - Medication Reconciliation Form, Thank You Letter, Antibiotic Education, Prescription Opioid Use, Work release form form. - Follow up: Private Physician; When: 2 - 3 days; Reason: Recheck today's complaints, Continuance of care, Re-evaluation by your physician. Signatures: Dispatcher [employer] [facility] Jim Rodríguez PA PA Grace Thompson RN RN iw Joaquin, Henry, RN RN hj Singer, Phillip, MD MD ps1 Corrections: (The following items were deleted from the chart) 19:01 18:29 09/15/2018 18:29 Discharged to Home. Impression: Influenza due to certain identified influenza viruses. Condition is Stable. Forms are Medication Reconciliation Form, Thank You Letter, Antibiotic Education, Prescription Opioid Use. Follow up: Private Physician; When: 2 - 3 days; Reason: Recheck today's complaints, Continuance of care, Re-evaluation by your physician. [facility]
--- NOTE | 2018-09-15 18:30 | ER ---
Nurse's Notes [facility] Name: Juan David Gould Age: 32 yrs Sex: Male : 1985 Arrival Date: 09/15/2018 Time: 16:19 Bed 9 Private MD: Diagnosis: Influenza due to certain identified influenza viruses Presentation: 09/15 16:32 Presenting complaint: Patient states: fever, ear ache, runny nose, cough started last hj Friday evening; reports sore throat; took Benadryl early AM;. Transition of care: patient was not received from another setting of care. Onset of symptoms was September 15, 2018. Risk Assessment: Do you want to hurt yourself or someone else? Patient reports no desire to harm self or others. Initial Sepsis Screen: Does the patient meet any 2 criteria? No. Patient's initial sepsis screen is negative. Does the patient have a suspected source of infection? No. Patient's initial sepsis screen is negative. Care prior to arrival: None. 16:32 Method Of Arrival: Ambulatory 16:32 Acuity: JUN 4 hj 17:18 Acuity: JUN 3 iw Triage Assessment: 16:33 General: Appears in no apparent distress. uncomfortable, Behavior is calm, cooperative, hj appropriate for age. Pain: Complains of pain in head, throat. ear. Historical: - Allergies: 16:33 Bactrim; hj - Home Meds: 16:33 None [Active]; hj - PMHx: 16:33 Asthma; Colitis; Heart Murmur; meningitis; hj - PSHx: 16:33 None; hj - Immunization history:: Adult Immunizations up to date. - Social history:: Smoking status: Patient uses tobacco products, Patient/guardian denies using alcohol. - Ebola Screening: : Patient negative for fever greater than or equal to 101.5 degrees Fahrenheit, and additional compatible Ebola Virus Disease symptoms Patient denies exposure to infectious person Patient denies travel to an Ebola-affected area in the 21 days before illness onset. Screenin:34 Abuse screen: Denies threats or abuse. Denies injuries from another. Nutritional hj screening: No deficits noted. Tuberculosis screening: No symptoms or risk factors identified. Fall Risk None identified. Assessment: 17:10 General: Appears in no apparent distress. Behavior is calm, cooperative. General: iw Reports fever for feeling ill for fatigue for. Pain: Complains of pain in head. Neuro: Level of Consciousness is awake, alert, obeys commands, Moves all extremities. Full function. Cardiovascular: Patient's skin is warm and dry. Respiratory: Reports cough that is Airway is patent is compromised Respiratory effort is even, unlabored, Respiratory pattern is regular. GI: Abdomen is flat, non-distended. Derm: Skin is intact, is healthy with good turgor. Musculoskeletal: Range of motion: intact in all extremities. 17:53 Reassessment: Patient appears in no apparent distress at this time. Patient and/or iw family updated on plan of care and expected duration. Pain level reassessed. Patient is alert, oriented x 3, equal unlabored respirations, skin warm/dry/pink. Vital Signs: 16:34 BP 109 / 56; Pulse 108; Resp 18; Temp 99.4(O); Pulse Ox 100% on R/A; Weight 65.77 kg; hj Height 5 ft. 6 in. (167.64 cm); 18:01 BP 124 / 85; Pulse 98; Resp 16; Pulse Ox 98% on R/A; iw 16:34 Body Mass Index 23.40 (65.77 kg, 167.64 cm) ED Course: 16:19 Patient arrived in ED. as 16:33 Triage completed. 16:34 Arm band placed on left wrist. 16:34 Patient has correct armband on for positive identification. Bed in low position. Call light in reach. Side rails up X 1. Adult w/ patient. 16:41 Grace Queen, RN is Primary Nurse. 16:44 Jim Rodríguez PA is PHCP. [facility] 16:44 Reji Alvarez MD is Attending Physician. [facility] 17:25 Initial lab(s) drawn, by wa, sent to lab. Inserted saline lock: 20 gauge in right iw antecubital area, using aseptic technique. Blood collected. 17:43 Chest Pa And Lat (2 Views) XRAY In Process Unspecified. EDMS 19:00 No provider procedures requiring assistance completed. IV discontinued, intact, iw bleeding controlled, No redness/swelling at site. Pressure dressing applied. Administered Medications: 17:33 Drug: NS 0.9% 1000 ml Route: IV; Rate: 1 bolus; Site: right antecubital; iw 17:51 Drug: Motrin 800 mg Route: PO; iw 18:57 Follow up: Response: No adverse reaction iw 18:59 Drug: Tamiflu 75 mg Route: PO; iw Outcome: 18:29 Discharge ordered by MD. zhou 19:00 Discharged to home ambulatory. iw 19:00 Condition: good 19:00 Discharge instructions given to patient, Instructed on discharge instructions, follow up and referral plans. medication usage, Demonstrated understanding of instructions, follow-up care, medications, Prescriptions given X 2. 19:01 Patient left the ED. iw Signatures: Dispatcher [employer] EDMS Jim Rodríguez PA PA jmm Martinez, Amelia as Williams, Irene, RN RN Keshawn Rothman RN RN Corrections: (The following items were deleted from the chart) 16:35 16:32 Presenting complaint: Patient states: fever, ear ache, cough started last Friday hj evening; reports sore throat; took Benadryl early AM; hj 16:35 16:34 65.77 kg; Height 5 ft. 6 in.; BMI: 23.4; hj hj 16:37 16:34 Pulse 108bpm; Resp 18bpm; Pulse Ox 100% RA; Temp 99.4F Oral; 65.77 kg; Height 5 hj ft. 6 in.; BMI: 23.4; hj
[2018-09-15] MEDS ORDERED: OSELTAMIVIR 75 MG CAP ONE (19:07)
== END 2018-09-15 19:01 | disposition home or self-care (01) ==
LOC: ER 16:18
DX: J10.1 Influenza due to other identified influenza virus with other respiratory manifestations (principal); J45.909 Unspecified asthma, uncomplicated; Z72.0 Tobacco use
CPT/HCPCS: 36415; 71046; 80053; 85025; 87070; 87081; 87804; 99284; J7030

== ENCOUNTER 2018-09-17 20:11 | Observation (INO) | payer SELFPAY ==
[2018-09-17] MEDS ORDERED: ACETAMINOPHEN 500 MG TAB ONE (20:44)
[2018-09-17] MEDS ORDERED: ASPIRIN 81 MG CHEWABLE TABLET ONE (20:49)
[2018-09-17] MEDS ORDERED: NA CHLORIDE 0.9% 2,000 ML ONE (20:58)
[2018-09-17 21:04] LABS: Absolute Monocytes 1.2 K/uL (0.1-1.3); Absolute Neutrophil 7.3 K/uL (1.8-8.0); Basophils % 0.6 % (0-1.3); Eosinophils % 0.1 % (0-4.4); Hematocrit 45.7 % (39.6-49.0); Lymphocytes % 18.7 % (15.3-44.8); MPV 8.4 fL (7.6-11.3); Monocytes % 11.3 % (3.3-12.3); RBC Red Blood Cell Count 5.16 M/uL (4.33-5.43)
[2018-09-17 21:14] LABS: Protime INR 1.15
[2018-09-17 21:22] LABS: ALT/SGPT 40 U/L (12-78); AST/SGOT 37 U/L (15-37); Alkaline Phosphatase 74 U/L (45-117); BUN Blood Urea Nitrogen 10 mg/dL (7-18); Bicarbonate 27 mmol/L (21-32); Bilirubin Direct 0.1 mg/dL (0-0.2); Bilirubin Total 0.5 mg/dL (0.2-1.0); Glucose Level 84 mg/dL (74-106); NT PRO-BNP 11 pg/mL (<125); Potassium 3.7 mmol/L (3.5-5.1); Protein, Total 7.5 g/dL (6.4-8.2); Sodium Level 136 mmol/L (136-145); Troponin (Emerg Dept Use Only) < 0.02 ng/mL (0.0-0.045)
[2018-09-17] MEDS ORDERED: KETOROLAC 30 MG/ML INJ ONE (21:36)
--- NOTE | 2018-09-17 22:31 | RAD REPORT ---
EXAM DESCRIPTION: Maday Single View09/17/2018 9:13 pm CLINICAL HISTORY: Chest pain COMPARISON: September 15, 2018 FINDINGS: The lungs appear clear of acute infiltrate. The heart is normal size IMPRESSION: No acute abnormalities displayed
--- NOTE | 2018-09-18 00:09 | ER ---
Nurse's Notes [facility] Name: Juan David Gould Age: 32 yrs Sex: Male : 1985 Arrival Date: 09/17/2018 Time: 20:12 Bed 27 Private MD: Diagnosis: Chest pain, unspecified;Abnormal electrocardiogram [ECG] [EKG] Presentation: 09/17 20:15 Presenting complaint: Patient states: Chest pain that began this morning, "every time I lp1 cough, my chest hurts and it brings me to my knees"; Diagnosed with Flu B on Friday. Transition of care: patient was not received from another setting of care. Onset of symptoms was September 17, 2018. Risk Assessment: Do you want to hurt yourself or someone else? Patient reports no desire to harm self or others. Initial Sepsis Screen: Does the patient meet any 2 criteria? No. Patient's initial sepsis screen is negative. Does the patient have a suspected source of infection? No. Patient's initial sepsis screen is negative. Care prior to arrival: None. 20:15 Method Of Arrival: Ambulatory lp1 20:15 Acuity: JUN 3 lp1 Historical: - Allergies: 20:17 Bactrim; lp1 - Home Meds: 20:17 None [Active]; lp1 - PMHx: 20:17 Asthma; Colitis; Heart Murmur; meningitis; lp1 - PSHx: 20:17 None; lp1 - Immunization history:: Adult Immunizations up to date, Flu vaccine is not up to date. - Social history:: Smoking status: Patient uses tobacco products, smokes one-half pack cigarettes per day. - Ebola Screening: : No symptoms or risks identified at this time. Screenin:54 Abuse screen: Denies threats or abuse. Denies injuries from another. Nutritional rv screening: No deficits noted. Tuberculosis screening: No symptoms or risk factors identified. Fall Risk None identified. Assessment: 20:53 General: Appears in no apparent distress. uncomfortable, ill, Behavior is calm, rv cooperative. Pain: Complains of pain in chest Pain does not radiate. Pain began suddenly. Neuro: Level of Consciousness is awake, alert, obeys commands, Oriented to person, place, time, situation. Cardiovascular: Capillary refill < 3 seconds. Respiratory: Airway is patent. GI: No signs and/or symptoms were reported involving the gastrointestinal system. : No signs and/or symptoms were reported regarding the genitourinary system. EENT: No signs and/or symptoms were reported regarding the EENT system. Derm: Skin is intact. Musculoskeletal: No signs and/or symptoms reported regarding the musculoskeletal system. 22:05 Reassessment: Patient appears in no apparent distress at this time. Patient and/or rv family updated on plan of care and expected duration. Pain level reassessed. Patient is alert, oriented x 3, equal unlabored respirations, skin warm/dry/pink. patient denies getting better. temperature is going down. vital signs stable. Vital Signs: 20:16 BP 118 / 68; Pulse 113; Resp 20; Temp 100.3(O); Pulse Ox 100% on R/A; Weight 68.04 kg lp1 (R); Height 5 ft. 6 in. (167.64 cm); Pain 10/10; 21:00 BP 111 / 64 LA; Pulse 80; Resp 13 S; Pulse Ox 95% on R/A; rv 21:13 Temp 100.4(O); rv 22:06 BP 104 / 69 RA; Pulse 72; Resp 19 S; Pulse Ox 96% on R/A; rv 22:45 BP 109 / 61; Pulse 74; Resp 19; Pulse Ox 96% on R/A; ca1 23:30 BP 104 / 61 LA; Pulse 64; Resp 25 S; Pulse Ox 90% on R/A; rv 23:30 Pulse Ox 96% on 2 lpm NC; rv 09/18 01:50 BP 102 / 64 LA; Pulse 61; Resp 16 S; Pulse Ox 96% on 2 lpm NC; rv 09/17 20:16 Body Mass Index 24.21 (68.04 kg, 167.64 cm) lp1 ED Course: 09/17 20:12 Patient arrived in ED. es 20:16 Triage completed. lp1 20:17 Arm band placed on right wrist. lp1 20:20 EKG done, by ED staff. lp1 20:25 Rodrigo Metzger PA is PHCP. jr8 20:25 Pankaj Arizmendi MD is Attending Physician. jr8 20:25 Inserted saline lock: 18 gauge in right antecubital area, using aseptic technique. rv Blood collected. 20:25 Patient maintains SpO2 saturation greater than 95% on room air. rv 20:51 Blood Culture Sent. rv 20:51 Blood Culture Adult (2) Sent. rv 20:52 Procalcitonin Sent. rv 21:07 Flu Sent. rv 21:11 XRAY Chest (1 view) In Process Unspecified. EDMS 21:15 Patient has correct armband on for positive identification. Bed in low position. Call rv light in reach. Side rails up X 1. surveillance monitor on. Pulse ox on. NIBP on. 09/18 00:07 Julia Acharya MD is Hospitalizing Provider. jr8 01:51 No provider procedures requiring assistance completed. Patient admitted, IV remains in rv place. intact. Administered Medications: 09/17 20:30 Drug: Tylenol 1000 mg Route: PO; rv 21:14 Follow up: Response: Temperature is decreased rv 20:30 Drug: NS 0.9% 1000 ml Route: IV; Rate: 1000 ml; Site: right antecubital; rv 23:52 Follow up: IV Status: Completed infusion rv 20:37 Drug: Aspirin Chewable Tablet 324 mg Route: PO; rv 21:14 Follow up: Response: No adverse reaction rv 21:27 Drug: TORadol 30 mg Route: IVP; Site: right antecubital; rv 23:52 Follow up: Response: Pain is decreased rv Outcome: 09/18 00:07 Decision to Hospitalize by Provider. jr8 01:51 Admitted to Med/surg accompanied by nurse, via wheelchair, room 206, with chart, Report rv called to MARY HERRON 01:51 Condition: good 01:51 Instructed on the need for admit. 01:52 Patient left the ED. rv Signatures: Dispatcher [employer] EDMS Ina Aranda Laura, RN RN lp1 Rodrigo Metzger PA PA jr8 Grzegorz Bolden RN RN rv Mayra Nair RN RN ca1 Corrections: (The following items were deleted from the chart) 09/17 20:18 20:17 Arm band placed on left wrist. lp1 lp1
--- NOTE | 2018-09-18 00:09 | EDPHYS ---
Physician Documentation [facility] Name: Juan David Gould Age: 32 yrs Sex: Male : 1985 Arrival Date: 09/17/2018 Time: 20:12 Bed 27 Private MD: ED Physician Pankaj Arizmendi HPI: 09/17 21:22 This 32 yrs old Male presents to ER via Ambulatory with complaints of Chest jr8 Pain, NUMBNESS IN CHEST. 21:22 The patient or guardian reports chest pain that is located primarily in the anterior jr8 chest wall, bilaterally. The pain does not radiate. Associated signs and symptoms: Pertinent positives: cough, nausea, fever. The chest pain is described as sharp. Duration: The patient or guardian reports multiple episodes, that are intermittent, that wax and wane. Modifying factors: The symptoms are alleviated by nothing. the symptoms are aggravated by cough, deep breath. Severity of pain: At its worst the pain was moderate in the emergency department the pain is unchanged. The patient has not experienced similar symptoms in the past. The patient has been recently seen by a physician:. This past Friday was diagnosed with influenza type B. Has been in bed trying to rest. Still running fevers. Stated that his chest started to hurt today and will not go away. Has tried OTC medications without relief . Historical: - Allergies: 20:17 Bactrim; lp1 - Home Meds: 20:17 None [Active]; lp1 - PMHx: 20:17 Asthma; Colitis; Heart Murmur; meningitis; lp1 - PSHx: 20:17 None; lp1 - Immunization history:: Adult Immunizations up to date, Flu vaccine is not up to date. - Social history:: Smoking status: Patient uses tobacco products, smokes one-half pack cigarettes per day. - Ebola Screening: : No symptoms or risks identified at this time. ROS: 21:22 Eyes: Negative for injury, pain, redness, and discharge, Neck: Negative for injury, jr8 pain, and swelling, Respiratory: Negative for shortness of breath, cough, wheezing, and pleuritic chest pain, Abdomen/GI: Negative for abdominal pain, nausea, vomiting, diarrhea, and constipation, Back: Negative for injury and pain, MS/Extremity: Negative for injury and deformity, Skin: Negative for injury, rash, and discoloration, Neuro: Negative for headache, weakness, numbness, tingling, and seizure. 21:22 Constitutional: Positive for body aches, chills, fever. 21:22 ENT: Positive for rhinorrhea, sinus congestion, sore throat. 21:22 Cardiovascular: Positive for chest pain, Negative for edema, orthopnea, palpitations, paroxysmal nocturnal dyspnea. Exam: 21:22 Head/Face: Normocephalic, atraumatic. Eyes: Pupils equal round and reactive to light, jr8 extra-ocular motions intact. Lids and lashes normal. Conjunctiva and sclera are non-icteric and not injected. Cornea within normal limits. Periorbital areas with no swelling, redness, or edema. ENT: Nares patent. No nasal discharge, no septal abnormalities noted. Tympanic membranes are normal and external auditory canals are clear. Oropharynx with no redness, swelling, or masses, exudates, or evidence of obstruction, uvula midline. Mucous membranes moist. Neck: Trachea midline, no thyromegaly or masses palpated, and no cervical lymphadenopathy. Supple, full range of motion without nuchal rigidity, or vertebral point tenderness. No Meningismus. Cardiovascular: Regular rate and rhythm with a normal S1 and S2. No gallops, murmurs, or rubs. Normal PMI, no JVD. No pulse deficits. Respiratory: Lungs have equal breath sounds bilaterally, clear to auscultation and percussion. No rales, rhonchi or wheezes noted. No increased work of breathing, no retractions or nasal flaring. Abdomen/GI: Soft, non-tender, with normal bowel sounds. No distension or tympany. No guarding or rebound. No evidence of tenderness throughout. Back: No spinal tenderness. No costovertebral tenderness. Full range of motion. Skin: Warm, dry with normal turgor. Normal color with no rashes, no lesions, and no evidence of cellulitis. MS/ Extremity: Pulses equal, no cyanosis. Neurovascular intact. Full, normal range of motion. Neuro: Awake and alert, GCS 15, oriented to person, place, time, and situation. Cranial nerves II-XII grossly intact. Motor strength 5/5 in all extremities. Sensory grossly intact. Cerebellar exam normal. Normal gait. 21:22 Chest/axilla: Inspection: normal, Palpation: tenderness, that is mild, of the anterior aspect of right upper chest and anterior aspect of left upper chest, that partially reproduces the patient's complaints. 23:42 ECG was reviewed by the Attending Physician. [facility] Vital Signs: 20:16 BP 118 / 68; Pulse 113; Resp 20; Temp 100.3(O); Pulse Ox 100% on R/A; Weight 68.04 kg lp1 (R); Height 5 ft. 6 in. (167.64 cm); Pain 10/10; 21:00 BP 111 / 64 LA; Pulse 80; Resp 13 S; Pulse Ox 95% on R/A; rv 21:13 Temp 100.4(O); rv 22:06 BP 104 / 69 RA; Pulse 72; Resp 19 S; Pulse Ox 96% on R/A; rv 22:45 BP 109 / 61; Pulse 74; Resp 19; Pulse Ox 96% on R/A; ca1 23:30 BP 104 / 61 LA; Pulse 64; Resp 25 S; Pulse Ox 90% on R/A; rv 23:30 Pulse Ox 96% on 2 lpm NC; rv 09/18 01:50 BP 102 / 64 LA; Pulse 61; Resp 16 S; Pulse Ox 96% on 2 lpm NC; rv 09/17 20:16 Body Mass Index 24.21 (68.04 kg, 167.64 cm) lp1 MDM: 09/17 20:25 Patient medically screened. [facility] 23:42 Data reviewed: vital signs, nurses notes, lab test result(s), EKG, radiologic studies, 8 plain films. Data interpreted: Pulse oximetry: on room air is 96 %. Interpretation: normal. Counseling: I had a detailed discussion with the patient and/or guardian regarding: the historical points, exam findings, and any diagnostic results supporting the discharge/admit diagnosis, lab results, radiology results, the need for further work-up and treatment in the hospital. 09/17 20:35 Order name: Basic Metabolic Panel; Complete Time: 21:[address] [facility] 09/17 20:35 Order name: CBC with Diff; Complete Time: 21:[address] [facility] 09/17 20:35 Order name: LFT's; Complete Time: :[address] [facility] 09/17 20:35 Order name: Magnesium; Complete Time: 21: [facility] 09/17 20:35 Order name: NT PRO-BNP; Complete Time: 21:[address] [facility] 09/17 20:35 Order name: PT-INR; Complete Time: 21:[address] [facility] 09/17 20:35 Order name: Troponin (emerg Dept Use Only); Complete Time: 21:[address] [facility] 09/17 20:41 Order name: Procalcitonin 09/17 20:41 Order name: Blood Culture Adult (2) 09/17 20:42 Order name: Procalcitonin; Complete Time: 21:54 [facility] 09/17 20:42 Order name: Blood Culture [facility] 09/17 21:02 Order name: Flu; Complete Time: 21:34 09/18 00:52 Order name: Lipid Profile [facility] 09/18 00:52 Order name: Lipid Profile [facility] 09/17 20:35 Order name: XRAY Chest (1 view); Complete Time: 23:[address] [facility] 09/17 20:35 Order name: EKG; Complete Time: 20:[address] [facility] 09/17 20:35 Order name: Cardiac monitoring; Complete Time: 20:[address] [facility] 09/17 20:35 Order name: EKG - Nurse/Tech; Complete Time: 20:[address] [facility] 09/17 20:35 Order name: IV Saline Lock; Complete Time: 20:[address] [facility] 09/18 00:52 Order name: Heart Healthy [facility] 09/18 00:52 Order name: Echo with Doppler [facility] 09/18 00:52 Order name: EKG Electrocardiogram [facility] 09/18 00:52 Order name: EKG Electrocardiogram [facility] 09/18 00:52 Order name: Troponin I [facility] 09/18 00:52 Order name: Troponin I [facility] 09/18 00:52 Order name: Troponin I [facility] 09/17 20:35 Order name: Labs collected and sent; Complete Time: 20:[address] [facility] 09/17 20:35 Order name: O2 Per Protocol; Complete Time: 20:[address] [facility] 09/17 20:35 Order name: O2 Sat Monitoring; Complete Time: 20:52 jr8 EC:42 Rate is 107 beats/min. Rhythm is regular, Sinus tachycardia. ID interval is normal at jr8 114 msec. QRS interval is normal at 86 msec. QT interval is normal at 421 msec. Q waves are Present in leads II, III, aVF. T waves are Inverted in leads II, III, aVF. No ST changes noted. Clinical impression: Sinus tachycardia and Possible inferior wall ischemia . Interpreted by me. Reviewed by me. Administered Medications: 20:30 Drug: Tylenol 1000 mg Route: PO; rv 21:14 Follow up: Response: Temperature is decreased rv 20:30 Drug: NS 0.9% 1000 ml Route: IV; Rate: 1000 ml; Site: right antecubital; rv 23:52 Follow up: IV Status: Completed infusion rv 20:37 Drug: Aspirin Chewable Tablet 324 mg Route: PO; rv 21:14 Follow up: Response: No adverse reaction rv 21:27 Drug: TORadol 30 mg Route: IVP; Site: right antecubital; rv 23:52 Follow up: Response: Pain is decreased rv Disposition: 09/18/18 00:07 Hospitalization ordered by Julia Acharya for Observation. Preliminary diagnosis are Chest pain, unspecified, Abnormal electrocardiogram [ECG] [EKG]. - Bed requested for Telemetry/MedSurg (observation). - Status is Observation. rv - Condition is Stable. - Problem is new. - Symptoms have improved. UTI on Admission? No Addendum: 09/26/2018 21:02 Co-signature as Attending Physician, Pankaj Arizmendi MD. g s Signatures: Dispatcher [employer] EDMS Yvonne Waite RN RN lp1 Rodrigo Metzger PA PA 8 Pankaj Arizmendi MD MD gs [place], MyKena mw2 Grzegorz Bolden RN RN rv Corrections: (The following items were deleted from the chart) 09/17 23:51 23:42 Rate is 107 beats/min. Rhythm is regular, Sinus tachycardia. ID interval is jr8 normal at 114 msec. QRS interval is normal at 86 msec. QT interval is normal at 421 msec. Q waves are Present in leads II, III, aVF. T waves are Inverted in leads II, III, aVF. No ST changes noted. Clinical impression: Sinus tachycardia and Possible old inferior wall ischemia . Interpreted by me. Reviewed by me. jr8 09/18 00:07 09/17 23:42 Counseling: I had a detailed discussion with the patient and/or guardian jrBlanco regarding: the historical points, exam findings, and any diagnostic results supporting the discharge/admit diagnosis, lab results, radiology results, the need for outpatient follow up, a family practitioner, to return to the emergency department if symptoms worsen or persist or if there are any questions or concerns that arise at home, jr8 09/18 01:20 00:07 Hospitalization Ordered by Julia Acharya MD for Observation. Preliminary mw2 diagnosis is Chest pain, unspecified; Abnormal electrocardiogram [ECG] [EKG]. Bed requested for Telemetry/MedSurg (observation). Status is Observation. Condition is Stable. Problem is new. Symptoms have improved. UTI on Admission? No. jr8 01:52 01:20 09/18/2018 00:07 Hospitalization Ordered by Julia Acharya MD for Observation. rv Preliminary diagnosis is Chest pain, unspecified; Abnormal electrocardiogram [ECG] [EKG]. Bed requested for Telemetry/MedSurg (observation). Status is Observation. Condition is Stable. Problem is new. Symptoms have improved. UTI on Admission? No. mw2
[2018-09-18] MEDS ORDERED: ACETAMINOPHEN 500 MG TAB PO PRN (00:47)
[2018-09-18] MEDS ORDERED: ALPRAZOLAM 0.25 MG TABLET PO PRN (00:47)
[2018-09-18] MEDS ORDERED: GUAIFENESIN/CODEINE 5ML UCUP PO PRN (00:47)
[2018-09-18] MEDS ORDERED: METHYLPREDNISOLONE 125 MG INJ IV ONE (02:06)
[2018-09-18] MEDS ORDERED: OSELTAMIVIR 75 MG CAP PO ONE (02:06)
--- NOTE | 2018-09-18 06:07 | EKG ---
Test Date: 2018-09-17 Test Time: 20:20:41 Slab Miller Operator: KALYANI MEASUREMENT RESULTS: Intervals: Rate: 107 IL: 114 QRSD: 86 QT: 316 QTc: 421 [place]: P: 82 IL: 114 QRS: 79 T: -43 INTERPRETIVE STATEMENTS: Sinus tachycardia Biatrial enlargement LVH with secondary repolarization changes Abnormal ECG Compared to ECG 05/26/2018 18:08:17 Atrial abnormality now present ST (T wave) deviation now present Sinus rhythm no longer present Electronically Signed On 09-18-18 06:07:02 CDT by Ike Cook
[2018-09-18] MEDS: ALBUTEROL 2.5 MG/3 ML NEB SOL NEB SCH ×2 (07:45→13:55)
[2018-09-18] MEDS: IPRATROPIUM BROM 0.5MG/2.5ML NEB SCH ×2 (07:45→13:55)
[2018-09-18 08:10] LABS: HDL Cholesterol 40 mg/dL (40-60); LDL Cholesterol, Calculated 75 (<130); Troponin I < 0.02 ng/mL (0.0-0.045)
--- NOTE | 2018-09-18 08:24 | P.HP ---
Certification for Inpatient Patient admitted to: Observation With expected LOS: <2 Midnights Patient will require the following post-hospital care: None Practitioner: I am a practitioner with admitting privileges, knowledge of patient current condition, hospital course, and medical plan of care. Services: Services provided to patient in accordance with Admission requirements found in Title 42 Section 412.3 of the Code of Federal Regulations Patient History Date of Service: 09/18/18 Reason for admission: Pleuritic chest pain History of Present Illness: The patient is a 32-year-old gentleman who came to the hospital with chest discomfort. Patient was diagnosed with influenza pneumonia few days ago. However, he did not worm picker his prescription for Tamiflu. He went home and has been coughing with congestion. He has developed pain on deep inspiration. Patient had persistent coughing throughout the visit. Whenever he takes a deep breath he starts coughing as well. Spoke to the patient regarding his compliance. Informed him that he will probably need at least 3 more days of medication for the influenza at discharge. At this time, he will be admitted to the hospital for further evaluation. Allergies sulfamethoxazole [From Bactrim] Allergy (Mild, Verified 09/18/18 02:02) Hives/Rash trimethoprim [From Bactrim] Allergy (Mild, Verified 09/18/18 02:02) Hives/Rash Home Medications: NK [No Home Meds] 09/18/18 - Past Medical/Surgical History Has patient received pneumonia vaccine in the past: No Diabetic: No -: Heart murmur -: Asthma -: Colitis -: Meningitis Past Surgical History: Patient denies surgical history - Family History Mother Medical History: Heart disease, Hypertension, Diabetes Father Medical History: Lung disease - Social History Smoking Status: Current every day smoker Alcohol use: Yes Caffeine use: Yes Place of Residence: Home Review of Systems 10-point ROS is otherwise unremarkable Physical Examination - Vital Signs Temperature: 96.8 F Blood Pressure: 102/51 Pulse: 60 Respirations: 16 Pulse Ox (%): 96 - Physical Exam General: Alert, In no apparent distress, Oriented x3 HEENT: Atraumatic, PERRLA, Mucous membr. moist/pink, EOMI, Sclerae nonicteric Neck: Supple, 2+ carotid pulse no bruit, No LAD, Without JVD or thyroid abnormality Respiratory: Other ( coarse breath sounds) Cardiovascular: Regular rate/rhythm, Normal S1 S2, No murmurs Gastrointestinal: Normal bowel sounds, Soft and benign, Non-distended, No tenderness Musculoskeletal: No clubbing, No swelling, No tenderness Integumentary: No rashes Neurological: Normal gait, Normal speech, Normal strength at 5/5 x4 extr, Normal tone, Sensation intact, Cranial nerves 3-12 intact, Normal affect Lymphatics: No axilla or inguinal lymphadenopathy - Studies Laboratory Data (last 24 hrs) 09/17/18 20:25: PT 13.5 H, INR 1.15 09/17/18 20:25: WBC 10.6 D, Hgb 15.6, Hct 45.7, Plt Count 214 09/17/18 20:25: Sodium 136, Potassium 3.7, BUN 10, Creatinine 0.91, Glucose 84, Magnesium 2.0, Total Bilirubin 0.5, AST 37, ALT 40, Alkaline Phosphatase 74 Microbiology Data (last 24 hrs): 09/17/18 21:05 Nasopharnyx Influenza Type A Antigen Screen - Final 09/17/18 21:05 Nasopharnyx Influenza Type B Antigen Screen - Final Assessment & Plan - Problems (Diagnosis) (1) Pleuritic chest pain Current Visit: Yes Status: Acute (2) Influenza, pneumonia Current Visit: Yes Status: Acute - Plan Plan: 1. Continue with antivirals 2. Awaiting sputum and blood culture; procalcitonin level 3. Repeat chest x-ray in AM 4. Will order CT scan of the chest if pneumonia is not improving 5. Respiratory isolation 6. Continue with nebs as needed 7. O2 per protocol 8. Continue with gentle hydration 9. Repeat labs including CBC and renal function in a.m. 10. GI and DVT prophylaxis Discharge Plan: Home Plan to discharge in: 48 Hours - Advance Directives Does patient have a Living Will: No Does patient have a Durable POA for Healthcare: No - Code Status/Comfort Care Code Status Assessed: Yes Code Status: Full Code Critical Care: No Time Spent Managing PTS Care (In Minutes): 45
[2018-09-18] MEDS ORDERED: OSELTAMIVIR 75 MG CAP PO SCH (09:00)
[2018-09-18] MEDS ORDERED: ENOXAPARIN 40 MG/0.4 ML SQ SCH (09:00)
[2018-09-18] MEDS ORDERED: METOPROLOL TAR 50 MG TAB PO SCH (09:00)
[2018-09-18] MEDS ORDERED: ASPIRIN EC 81 MG TAB PO SCH (09:00)
--- NOTE | 2018-09-18 12:40 | ECHO ---
HEIGHT: 5 ft 6 in WEIGHT: 139 lb 9.6 oz DATE OF STUDY: 09/18/[address]: Julia Acharya MD 2-DIMENSIONAL: YES M.MODE: YES DOPPLER: YES COLOR FLOW: YES TDS: NO PORTABLE: NO DEFINITY: NO BUBBLE STUDY: NO DIAGNOSIS: CHEST PAIN/ RULE/OUT ACUTE CORONARY SYNDROME CARDIAC HISTORY: CATHERIZATION: NO SURGERY: NO PROSTHETIC VALVE: NO PACEMAKER: NO MEASUREMENTS (cm) DIASTOLIC (NORMALS) SYSTOLIC (NORMALS) IVSd 1.1 (0.6-1.2) LA Diam 3.2 (1.9-4.0) LVEF 71% LVIDd 4.7 (3.5-5.7) LVIDs 2.8 (2.0-3.5) %FS 41% LVPWd 1.1 (0.6-1.2) Ao Diam 3.1 (2.0-3.7) 2 DIMENSIONAL ASSESSMENT: RIGHT ATRIUM: NORMAL LEFT ATRIUM: NORMAL RIGHT VENTRICLE: NORMAL LEFT VENTRICLE: NORMAL TRICUSPID VALVE: NORMAL MITRAL VALVE: NORMAL PULMONIC VALVE: NORMAL AORTIC VALVE: NORMAL PERICARDIAL EFFUSION: NONE AORTIC ROOT: NORMAL LEFT VENTRICULAR WALL MOTION: NORMAL. DOPPLER/COLOR FLOW: TRACE OF AORTIC REGURGITATION. TRACE OF MITRAL REGURGITATION. COMMENTS: NORMAL 2D ECHO. TRACE OF AORTIC REGURGITATION. TRACE OF MITRAL REGURGITATION. TECHNOLOGIST: IMELDA FLOREZ
== END 2018-09-18 15:00 | disposition home or self-care (01) ==
LOC: ER 20:11 → ERHOLD 09-18 01:03 → 2ND 09-18 01:32
PROVIDERS: ADMIT Hospitalist; ATTEND Hospitalist
DX: J11.00 Influenza due to unidentified influenza virus with unspecified type of pneumonia (principal); R07.1 Chest pain on breathing; F17.210 Nicotine dependence, cigarettes, uncomplicated; Z88.2 Allergy status to sulfonamides
CPT/HCPCS: 36415; 71045; 80048; 80061; 80076; 83735; 83880; 84145; 84484; 85025; 85610; 87040; 87804; 93005; 93306; 94640; 96361; 96374; 99285; G0378; J1650; J2930; J7030